=== PATIENT | male | born 1980 | race American Indian/Alaskan Native ===

== ENCOUNTER 2016-07-03 10:42 | Emergency (ER) | payer SELFPAY ==
[2016-07-03 11:14] VITALS: BP 149/96
--- NOTE | 2016-07-03 13:11 | Emergency Department Report ---
HPI - General Chief Complaint: Upper Respiratory Infection Time Seen by Provider: 07/03/16 12:26 - HPI HPI: Patient here reporting that he has cold symptoms for the past week. He states that now he history cough and is feeling better. He said he took over-the- counter medication. He also said that daughter was sick and after daughter got sick he was exposed to whatever she had. He denies any fever or chills. Denies any nausea vomiting. Denies any shortness of breath or chest pain. Denies any pain. ED Past Medical Hx - Past Medical History Previous Medical History?: Yes Hx Asthma: Yes (bronchitis) - Surgical History Past Surgical History?: No - Family History Family history: no significant - Social History Smoking Status: Current Every Day Smoker Substance Use Type: Alcohol - Medications Home Medications: Home Medications Medication Instructions Recorded Confirmed Last Taken Type Albuterol Sulfate [Proair 90 mcg IH Q4H PRN #1 aer.pow.ba 01/01/16 Unknown Rx Respiclick] Azithromycin [Zithromax] 250 mg PO QDAY #6 tablet 01/01/16 Unknown Rx Montelukast [Singulair] 10 mg PO QPM #30 tablet 01/01/16 Unknown Rx Fluticasone [Flonase] 1 spray NS QDAY #1 bottle 07/03/16 Unknown Rx Loratadine [Claritin] 10 mg PO DAILY #10 tablet 07/03/16 Unknown Rx ED Review of Systems ROS: Stated complaint: COLD Other details as noted in HPI Comment: All other systems reviewed and negative Constitutional: denies: chills, malaise ENT: congestion. denies: ear pain, throat pain Respiratory: cough. denies: shortness of breath, SOB with exertion, SOB at rest , stridor, wheezing Gastrointestinal: denies: abdominal pain, nausea, vomiting, diarrhea Musculoskeletal: denies: back pain, arthralgia Skin: denies: rash Neurological: denies: headache Physical Exam - Physical Exam Vital Signs: Vital Signs 07/03/16 11:12 Temperature 98.3 F Pulse Rate 54 L Respiratory 16 Rate Blood Pressure 149/96 O2 Sat by Pulse 100 Oximetry General: This is a 35-year-old male well-nourished well-developed in no acute distress. Physical Exam: Head: Normocephalic atraumatic Mouth: Moist, no pharyngeal exudate or erythema. Uvula is midline and oral airway is patent. No gingival enlargement or dental tenderness. No facial swelling. No peritonsillar abscesses. Neck: Supple, no C-spine tenderness, no tracheal deviation. Nontender to palpate. no adenopathy Ears: Bilateral TMs congested without erythema .bilateral EAC without any redness swelling or drainage Eyes: Bilateral pupils equal and reactive to light, bilateral EOM intact. Bilateral sclera and conjunctiva without injection. Normal accommodation Nose: Mucosa moist, positive congestion no erythema. Positive clear drainage. maxillary and frontal sinus non-tender to palpate. Lungs: Clear to auscultate bilaterally no rhonchi wheezes or rales. Normal work of breathing extremity; No CCE. +2 pulses. No neurovascular compromise Cardiovascular: S1-S2, regular rate rhythm. No murmurs. Skin: clean Dry and intact no rash no lesions Psych: Normal mood and behavior ED Course Vital Signs 07/03/16 11:12 Temperature 98.3 F Pulse Rate 54 L Respiratory 16 Rate Blood Pressure 149/96 O2 Sat by Pulse 100 Oximetry - Reevaluation(s) Reevaluation #1: 07/03/16 13:09 Patient stable throughout ED stay. ED Medical Decision Making - Medical Decision Making ED course: I discussed with patient that he has upper respiratory tract infection which is getting better. I discussed with him diagnosis and treatment plan and he is in agreement. Discharged home with prescription for Flonase and Claritin. Critical care attestation.: If time is entered above; I have spent that time in minutes in the direct care of this critically ill patient, excluding procedure time. ED Disposition Clinical Impression: Upper respiratory tract infection Qualifiers: URI type: unspecified URI Qualified Code(s): J06.9 - Acute upper respiratory infection, unspecified Disposition: DISCHARGED TO HOME OR SELFCARE Is pt being admited?: No Does the pt Need Aspirin: No Condition: Stable Instructions: Upper Respiratory Infection (ED) Additional Instructions: Increase fluid intake Vitamin C to boost her immune system Prescriptions: Fluticasone [Flonase] 1 spray NS QDAY #1 bottle Loratadine [Claritin] 10 mg PO DAILY #10 tablet Referrals: PRIMARY CARE, [Primary Care Provider] - 3-5 Days [facility] [Outside] - 3-5 Days Forms: Work/School Release Form(ED)
== END 2016-07-03 13:16 | disposition home or self-care (01) ==
LOC: ED 10:42
DX: J06.9 Acute upper respiratory infection, unspecified (principal); J45.909 Unspecified asthma, uncomplicated; F17.200 Nicotine dependence, unspecified, uncomplicated
CPT/HCPCS: 99281

== ENCOUNTER 2016-10-03 12:13 | Emergency (ER) | payer SELFPAY ==
[2016-10-03 12:37] VITALS: BP 135/100
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
[2016-10-03] MEDS ORDERED: NACL 0.9% 1000 ML 1,000 ML IV ONE (15:08)
[2016-10-03] MEDS ORDERED: LEVSIN SL SL ONE (15:08)
[2016-10-03] MEDS ORDERED: ZOFRAN IV ONE (15:08)
[2016-10-03 15:45] LABS: Hematocrit 43.3 % (35.5-45.6); Hemoglobin 14.4 gm/dl (11.8-15.2); Mean Corpuscular HGB Conc 33 % (32-34); Mean Corpuscular Hemoglobin 29 pg (28-32); Mean Corpuscular Volume 87 fl (84-94); Platelet Count 194 K/mm3 (140-440); Red Blood Count 5.01 M/mm3 (3.65-5.03); White Blood Count 4.5 K/mm3 (4.5-11.0)
[2016-10-03 16:19] LABS: Blastocytes % (Manual) 0 %
[2016-10-03 16:21] LABS: Diff Status Complete; Platelet Estimate Consistent w Auto; RBC Morphology Normal
[2016-10-03 16:30] LABS: Alanine Aminotransferase 23 units/L (7-56); Albumin 4.1 g/dL (3.9-5); Albumin/Globulin Ratio 1.2 %; Alkaline Phosphatase 68 units/L (35-129); Anion Gap 14 mmol/L; Blood Urea Nitrogen 14 mg/dL (9-20); Carbon Dioxide 29 mmol/L (22-30); Chloride 101.7 mmol/L (98-107); Glucose 103 mg/dL (75-100); Lipase 25 units/L (13-60); Sodium 141 mmol/L (137-145); Total Protein 7.4 g/dL (6.3-8.2)
--- NOTE | 2016-10-03 17:15 | Emergency Department Report ---
ED N/V/D HPI - General Chief complaint: Nausea/Vomiting/Diarrhea Stated complaint: VOMITTING/DIARRHEA/FEVER/HIP PAIN Time Seen by Provider: 10/03/16 15:07 Source: patient Mode of arrival: Ambulatory Limitations: No Limitations - History of Present Illness Initial comments: 36-year-old male presents to the ED complaining about nausea, vomiting, diarrhea , left-sided abdominal cramping. Patient states he was exposed to cryptosporidium by family member in which other family members were also having similar symptoms. Patient states that he has been having the symptoms for last 10 days off and on. Denies fever, bloody vomiting, bloody stool. - Related Data Previous Rx's Medication Instructions Recorded Last Taken Type Albuterol Sulfate [Proair 90 mcg IH Q4H PRN #1 aer.pow.ba 01/01/16 Unknown Rx Respiclick] Azithromycin [Zithromax] 250 mg PO QDAY #6 tablet 01/01/16 Unknown Rx Montelukast [Singulair] 10 mg PO QPM #30 tablet 01/01/16 Unknown Rx Fluticasone [Flonase] 1 spray NS QDAY #1 bottle 07/03/16 Unknown Rx Loratadine [Claritin] 10 mg PO DAILY #10 tablet 07/03/16 Unknown Rx Hyoscyamine Subl [Levsin Sl 0.125 0.125 mg SL Q4HR PRN #14 tablet 10/03/16 Unknown Rx TAB] Ondansetron [Zofran Odt] 4 mg PO Q6H #14 tab.rapdis 10/03/16 Unknown Rx Allergies Allergy/AdvReac Type Severity Reaction Status Date / Time No Known Allergies Allergy Verified 01/01/16 11:43 ED Review of Systems ROS: Stated complaint: VOMITTING/DIARRHEA/FEVER/HIP PAIN Other details as noted in HPI Constitutional: denies: chills, fever Eyes: denies: eye pain, eye discharge, vision change ENT: denies: ear pain, throat pain Respiratory: denies: cough, shortness of breath, wheezing Cardiovascular: denies: chest pain, palpitations Endocrine: no symptoms reported Gastrointestinal: abdominal pain, nausea, vomiting, diarrhea Genitourinary: denies: urgency, dysuria Musculoskeletal: denies: back pain, joint swelling, arthralgia Skin: denies: rash, lesions Neurological: denies: headache, weakness, paresthesias Psychiatric: denies: anxiety, depression Hematological/Lymphatic: denies: easy bleeding, easy bruising ED Past Medical Hx - Past Medical History Previous Medical History?: Yes Hx Asthma: Yes (bronchitis) - Surgical History Past Surgical History?: No - Social History Smoking Status: Current Every Day Smoker Substance Use Type: Alcohol - Medications Home Medications: Home Medications Medication Instructions Recorded Confirmed Last Taken Type Albuterol Sulfate [Proair 90 mcg IH Q4H PRN #1 aer.pow.ba 01/01/16 Unknown Rx Respiclick] Azithromycin [Zithromax] 250 mg PO QDAY #6 tablet 01/01/16 Unknown Rx Montelukast [Singulair] 10 mg PO QPM #30 tablet 01/01/16 Unknown Rx Fluticasone [Flonase] 1 spray NS QDAY #1 bottle 07/03/16 Unknown Rx Loratadine [Claritin] 10 mg PO DAILY #10 tablet 07/03/16 Unknown Rx Hyoscyamine Subl [Levsin Sl 0.125 0.125 mg SL Q4HR PRN #14 tablet 10/03/16 Unknown Rx TAB] Ondansetron [Zofran Odt] 4 mg PO Q6H #14 tab.rapdis 10/03/16 Unknown Rx ED Physical Exam - General Limitations: No Limitations General appearance: alert, in no apparent distress - Head Head exam: Present: atraumatic, normocephalic - Eye Eye exam: Present: normal appearance - ENT ENT exam: Present: mucous membranes moist - Neck Neck exam: Present: normal inspection - Respiratory Respiratory exam: Present: normal lung sounds bilaterally. Absent: respiratory distress - Cardiovascular Cardiovascular Exam: Present: regular rate, normal rhythm. Absent: systolic murmur, diastolic murmur, rubs, gallop - GI/Abdominal GI/Abdominal exam: Present: soft, tenderness (left lower quadrant), normal bowel sounds. Absent: distended, guarding, rebound, rigid - Rectal Rectal exam: Present: deferred - Extremities Exam Extremities exam: Present: normal inspection - Back Exam Back exam: Present: normal inspection - Neurological Exam Neurological exam: Present: alert, oriented X3 - Psychiatric Psychiatric exam: Present: normal affect, normal mood - Skin Skin exam: Present: warm, dry, intact, normal color. Absent: rash ED Course Vital Signs 10/03/16 12:33 Temperature 98.6 F Pulse Rate 47 L Respiratory 18 Rate Blood Pressure 135/100 O2 Sat by Pulse 100 Oximetry ED Medical Decision Making - Lab Data Result diagrams: 10/03/16 15:36 10/03/16 15:36 Vital Signs 10/03/16 12:33 Temperature 98.6 F Pulse Rate 47 L Respiratory 18 Rate Blood Pressure 135/100 O2 Sat by Pulse 100 Oximetry Laboratory Results - last 24 hr 10/03/16 10/03/16 15:36 15:36 WBC 4.5 RBC 5.01 Hgb 14.4 Hct 43.3 MCV 87 MCH 29 MCHC 33 RDW 13.0 L Plt Count 194 [place] % (Auto) Rf Technician Add Manual Diff Complete Total Counted 100 Seg Neuts % (Manual) 40.0 Band Neutrophils % 2.0 Lymphocytes % (Manual) 36.0 H Reactive Lymphs % (Man) 0 Monocytes % (Manual) 20.0 H Eosinophils % (Manual) 1.0 Basophils % (Manual) 1.0 Metamyelocytes % 0 Myelocytes % 0 Promyelocytes % 0 Blast Cells % 0 Nucleated RBC % Not Reportable Seg Neutrophils # Man 1.8 Band Neutrophils # 0.1 Lymphocytes # (Manual) 1.6 Abs React Lymphs (Man) 0.0 Monocytes # (Manual) 0.9 H Eosinophils # (Manual) 0.0 Basophils # (Manual) 0.0 Metamyelocytes # 0.0 Myelocytes # 0.0 Promyelocytes # 0.0 Blast Cells # 0.0 WBC Morphology Not Reportable Hypersegmented Neuts Not Reportable Hyposegmented Neuts Not Reportable Hypogranular Neuts Not Reportable Smudge Cells Not Reportable Toxic Granulation Not Reportable Toxic Vacuolation Not Reportable Dohle Bodies Not Reportable Pelger-Huet Anomaly Not Reportable Roz Rods Not Reportable Platelet Estimate Consistent w auto Clumped Platelets Not Reportable Plt Clumps, EDTA Not Reportable Large Platelets Not Reportable Giant Platelets Not Reportable Platelet Satelliting Not Reportable Plt Morphology Comment Not Reportable RBC Morphology Normal Dimorphic RBCs Not Reportable Polychromasia Not Reportable Hypochromasia Not Reportable Poikilocytosis Not Reportable Anisocytosis Not Reportable Microcytosis Not Reportable Macrocytosis Not Reportable Spherocytes Not Reportable Pappenheimer Bodies Not Reportable Sickle Cells Not Reportable Target Cells Not Reportable Tear Drop Cells Not Reportable Ovalocytes Not Reportable Helmet Cells Not Reportable Segura-Wilkinson Bodies Not Reportable Dawson Rings Not Reportable [place]ell Cells Not Reportable Bite Cells Not Reportable Crenated Cell Not Reportable Elliptocytes Not Reportable Acanthocytes (Spur) Not Reportable Rouleaux Not Reportable Hemoglobin C Crystals Not Reportable Schistocytes Not Reportable Malaria parasites Not Reportable James Bodies Not Reportable Hem Pathologist Commnt No Sodium 141 Potassium 4.0 Chloride 101.7 Carbon Dioxide 29 Anion Gap 14 BUN 14 Creatinine 0.8 Estimated GFR > 60 BUN/Creatinine Ratio 17.50 Glucose 103 H Calcium 9.0 Total Bilirubin 0.50 AST 20 ALT 23 Alkaline Phosphatase 68 Total Protein 7.4 Albumin 4.1 Albumin/Globulin Ratio 1.2 Lipase 25 - Medical Decision Making Patient lab work is all within normal limits and vital signs are stable. Patient is no longer having tenderness to palpation on re-abdominal examination. Patient is smiling, resting comfortably, ready for discharge. Will follow-up with GI also stool cultures pending. Critical care attestation.: If time is entered above; I have spent that time in minutes in the direct care of this critically ill patient, excluding procedure time. ED Disposition Clinical Impression: Acute gastroenteritis Disposition: DISCHARGED TO HOME OR SELFCARE Is pt being admited?: No Does the pt Need Aspirin: No Condition: Good Instructions: Gastroenteritis (ED) Additional Instructions: Take medication as prescribed. Follow-up with GI in the next few days while stool culture is pending. Return to the ED if symptoms worsen or fever or bloody stool develops. Prescriptions: Hyoscyamine Subl [Levsin Sl 0.125 TAB] 0.125 mg SL Q4HR PRN #14 tablet PRN Reason: Spasms Ondansetron [Zofran Odt] 4 mg PO Q6H #14 tab.rapdis Referrals: PRIMARY CARE, [Primary Care Provider] - 3-5 Days Forms: Work/School Release Form(ED) Time of Disposition: 17:15
== END 2016-10-03 17:40 | disposition home or self-care (01) ==
LOC: ED 12:13
DX: K52.9 Noninfective gastroenteritis and colitis, unspecified (principal); J45.909 Unspecified asthma, uncomplicated; F17.200 Nicotine dependence, unspecified, uncomplicated
CPT/HCPCS: 36415; 80053; 83690; 85007; 85025; 87045; 96374; 99283; J2405; J7030

== ENCOUNTER 2017-02-07 16:15 | Emergency (ER) | payer SELFPAY ==
[2017-02-07 17:03] LABS: Basophils % (Auto) 0.4 % (0.0-1.8); Eosinophils % (Auto) 0.4 % (0.0-4.3); Hematocrit 44.3 % (35.5-45.6); Hemoglobin 14.8 gm/dl (11.8-15.2); Mean Corpuscular HGB Conc 33 % (32-34); Mean Corpuscular Hemoglobin 29 pg (28-32); Mean Corpuscular Volume 88 fl (84-94); Platelet Count 189 K/mm3 (140-440); Red Blood Count 5.06 M/mm3 (3.65-5.03); Red Cell Distribution Width 13.3 % (13.2-15.2); White Blood Count 4.1 K/mm3 (4.5-11.0)
[2017-02-07 17:19] LABS: Anion Gap 18 mmol/L; BUN/Creatinine Ratio 11.25; Blood Urea Nitrogen 9 mg/dL (9-20); Calcium 9.4 mg/dL (8.4-10.2); Carbon Dioxide 26 mmol/L (22-30); Chloride 103.1 mmol/L (98-107); Glucose 88 mg/dL (75-100); Potassium 4.6 mmol/L (3.6-5.0); Sodium 142 mmol/L (137-145)
--- NOTE | 2017-02-07 17:19 | Emergency Department Report ---
Chief Complaint: Chest Pain Stated Complaint: CP Time Seen by Provider: 02/07/17 17:19 - HPI History of Present Illness: Patient here report chest pain to right chest that is 8 out of 10 and it's worse when he breathes and it feels squeezed the knees had similar pain when he was younger and he had pericarditis. Patient has a history of asthma he denies any wheezing. Denies any known fever. Patient heart rate is 44 and EKG and manual pulse is at 55. Patient said that he's been told that he has a runner's heart and his heart rate is always low. He said he has cough and congestion to his chest and cough is hacking in for 3 days now. No [id number] medication use. It was noted in triage noted patient was anxious patient denies being anxious. It was also reported the patient was having difficulty walking but he said because he felt sick and he was coughing so much but he is able to walk. Denies any history of cardiac disease. Medical history of bronchitis, pericarditis and asthma. - ROS Review of Systems: All systems are negative unless stated in HPI above - Exam Vital Signs: Vital Signs 02/07/17 02/07/17 16:26 16:33 Temperature 97.9 F Pulse Rate 53 L 44 L Respiratory 16 Rate Blood Pressure 151/99 O2 Sat by Pulse 100 Oximetry Vital Signs 02/07/17 02/07/17 02/07/17 16:26 16:33 18:21 Temperature 97.9 F Pulse Rate 53 L 44 L 55 L Respiratory 16 Rate Blood Pressure 151/99 O2 Sat by Pulse 100 Oximetry Physical Exam: Gen.: This is a 36-year-old male well-nourished well-developed in no acute distress. Cardiovascular: S1, S2. Patient with bradycardia . EKG shows sinus bradycardia at 44 bpm. Manual apical pulse is a 55 bpm Lungs: Dry cough noted, normal work of breathing. No use of accessory muscles. Lungs sounds clear throughout. MSE screening note: Focused history and physical exam performed. Due to findings the following was ordered:see [facility] ED Medical Decision Making - Lab Data Result diagrams: 02/07/17 16:40 02/07/17 16:40 - Medical Decision Making MDM: Patient screened by provider in triage area. Appropriate protocol initiated and patient to be seen in main ED by Provider ED Disposition for MSE Condition: Stable
--- NOTE | 2017-02-08 02:34 | Emergency Department Report ---
ED General Adult HPI - General Chief complaint: Chest Pain Stated complaint: CP Time Seen by Provider: 02/07/17 17:19 Source: patient, RN notes reviewed Mode of arrival: Ambulatory Limitations: No Limitations - History of Present Illness Initial comments: This is a 36-year-old male, the patient is previously unknown to me. The patient reports a history of cannabis consumption, asthmatic bronchitis, pericarditis in the distant past. Patient presents to the ER complaining of right-sided chest wall discomfort with coughing. There is no vomiting or diaphoresis. There is no leg pain or leg swelling. No recent trips greater than 4 hours. No recent hospital admissions. Patient denies cocaine use and aspirin use. His symptoms do not radiate anywhere, and they have no exacerbating or relieving factors. -: Gradual Location: chest Radiation: non-radiation Severity scale (0 -10): 6 Quality: aching Consistency: intermittent Improves with: none Worsens with: none Associated Symptoms: chest pain, cough - Related Data Previous Rx's Medication Instructions Recorded Last Taken Type Albuterol Sulfate [Proair 90 mcg IH Q4HR PRN #2 aer.[email or web address] 02/08/17 Unknown Rx Respiclick] Benzonatate [Tessalon Perles] 100 mg PO Q8HR PRN #30 capsule 02/08/17 Unknown Rx Fluticasone [Flonase] 1 spray NS QDAY #1 bottle 02/08/17 Unknown Rx Ibuprofen [Motrin] 600 mg PO Q8H PRN #30 tablet 02/08/17 Unknown Rx Allergies Allergy/AdvReac Type Severity Reaction Status Date / Time No Known Allergies Allergy Verified 01/01/16 11:43 ED Review of Systems ROS: Stated complaint: CP Other details as noted in HPI Constitutional: denies: diaphoresis, fever, malaise Eyes: denies: vision change ENT: congestion Respiratory: cough Cardiovascular: chest pain Gastrointestinal: denies: abdominal pain Genitourinary: denies: dysuria Musculoskeletal: denies: back pain Skin: denies: lesions Neurological: denies: weakness Psychiatric: denies: anxiety ED Past Medical Hx - Past Medical History Previous Medical History?: Yes Hx Asthma: Yes (bronchitis) Additional medical history: Pericarditis - Surgical History Past Surgical History?: No - Social History Smoking Status: Current Every Day Smoker Substance Use Type: Alcohol, Marijuana - Medications Home Medications: Home Medications Medication Instructions Recorded Confirmed Last Taken Type Albuterol Sulfate [Proair 90 mcg IH Q4HR PRN #2 aer.[email or web address] 02/08/17 Unknown Rx Respiclick] Benzonatate [Tessalon Perles] 100 mg PO Q8HR PRN #30 capsule 02/08/17 Unknown Rx Fluticasone [Flonase] 1 spray NS QDAY #1 bottle 02/08/17 Unknown Rx Ibuprofen [Motrin] 600 mg PO Q8H PRN #30 tablet 02/08/17 Unknown Rx ED Physical Exam - General Limitations: No Limitations General appearance: alert, in no apparent distress - Head Head exam: Present: atraumatic, normocephalic - Eye Eye exam: Present: normal appearance, EOMI. Absent: nystagmus - ENT ENT exam: Present: normal exam, normal orophraynx, mucous membranes moist, normal external ear exam - Neck Neck exam: Present: normal inspection, full ROM. Absent: tenderness, meningismus - Respiratory Respiratory exam: Present: normal lung sounds bilaterally. Absent: respiratory distress, wheezes, rales, rhonchi, stridor - Cardiovascular Cardiovascular Exam: Present: normal rhythm, bradycardia, normal heart sounds. Absent: systolic murmur, diastolic murmur, rubs, gallop - GI/Abdominal GI/Abdominal exam: Present: soft, normal bowel sounds. Absent: distended, tenderness, guarding, rebound, rigid, pulsatile mass - Rectal Rectal exam: Present: deferred - Extremities Exam Extremities exam: Present: normal inspection, full ROM, normal capillary refill. Absent: tenderness, pedal edema, joint swelling, calf tenderness - Back Exam Back exam: Present: normal inspection, full ROM. Absent: tenderness, CVA tenderness (R), CVA tenderness (L), muscle spasm, paraspinal tenderness, vertebral tenderness - Neurological Exam Neurological exam: Present: alert, oriented X3, normal gait, other (Extraocular movements intact. Tongue midline. No facial droop. Facial sensation intact to light touch in the V1, V2, V3 distribution bilaterally. 5 and 5 strength in 4 extremities.. Sensation is intact to light touch in 4 extremities.). Absent : motor sensory deficit - Psychiatric Psychiatric exam: Present: normal affect, normal mood - Skin Skin exam: Present: warm, dry, intact, normal color. Absent: rash ED Course Vital Signs 02/07/17 02/07/17 02/07/17 16:26 16:33 18:21 Temperature 97.9 F Pulse Rate 53 L 44 L 55 L Respiratory 16 Rate Blood Pressure 151/99 Blood Pressure [Left] O2 Sat by Pulse 100 Oximetry 02/07/17 02/08/17 02/08/17 21:28 00:16 01:05 Temperature 97.9 F Pulse Rate 52 L 52 L Respiratory 18 17 Rate Blood Pressure 144/98 Blood Pressure 174/103 150/100 [Left] O2 Sat by Pulse 99 100 Oximetry 02/08/17 02:41 Temperature Pulse Rate 52 L Respiratory Rate Blood Pressure Blood Pressure 151/102 [Left] O2 Sat by Pulse Oximetry ED Medical Decision Making - Lab Data Result diagrams: 02/07/17 16:40 02/07/17 16:40 Vital Signs 02/07/17 02/07/17 02/07/17 16:26 16:33 18:21 Temperature 97.9 F Pulse Rate 53 L 44 L 55 L Respiratory 16 Rate Blood Pressure 151/99 Blood Pressure [Left] O2 Sat by Pulse 100 Oximetry 02/07/17 02/08/17 02/08/17 21:28 00:16 01:05 Temperature 97.9 F Pulse Rate 52 L 52 L Respiratory 18 17 Rate Blood Pressure 144/98 Blood Pressure 174/103 150/100 [Left] O2 Sat by Pulse 99 100 Oximetry 02/08/17 02:41 Temperature Pulse Rate 52 L Respiratory Rate Blood Pressure Blood Pressure 151/102 [Left] O2 Sat by Pulse Oximetry Lab Results 02/07/17 02/07/17 02/07/17 Range/Units 16:40 16:40 19:31 WBC 4.1 L (4.5-11.0) K/mm3 RBC 5.06 H (3.65-5.03) M/mm3 Hgb 14.8 (11.8-15.2) gm/dl Hct 44.3 (35.5-45.6) % MCV 88 (84-94) fl MCH 29 (28-32) pg MCHC 33 (32-34) % RDW 13.3 (13.2-15.2) % Plt Count 189 (140-440) K/mm3 Lymph % (Auto) 38.2 H (13.4-35.0) % Maverick % (Auto) 12.9 H (0.0-7.3) % Eos % (Auto) 0.4 (0.0-4.3) % Baso % (Auto) 0.4 (0.0-1.8) % Lymph # 1.6 (1.2-5.4) K/mm3 Maverick # 0.5 (0.0-0.8) K/mm3 Eos # 0.0 (0.0-0.4) K/mm3 Baso # 0.0 (0.0-0.1) K/mm3 Seg Neutrophils % 48.1 (40.0-70.0) % Seg Neutrophils # 2.0 (1.8-7.7) K/mm3 Sodium 142 (137-145) mmol/L Potassium 4.6 (3.6-5.0) mmol/L Chloride 103.1 (98-107) mmol/L Carbon Dioxide 26 (22-30) mmol/L Anion Gap 18 mmol/L BUN 9 (9-20) mg/dL Creatinine 0.8 (0.8-1.5) mg/dL Estimated GFR > 60 ml/min BUN/Creatinine Ratio 11.25 % Glucose 88 (75-100) mg/dL Calcium 9.4 (8.4-10.2) mg/dL Troponin T < 0.010 < 0.010 (0.00-0.029) ng/mL 02/07/17 Range/Units 22:42 WBC (4.5-11.0) K/mm3 RBC (3.65-5.03) M/mm3 Hgb (11.8-15.2) gm/dl Hct (35.5-45.6) % MCV (84-94) fl MCH (28-32) pg MCHC (32-34) % RDW (13.2-15.2) % Plt Count (140-440) K/mm3 Lymph % (Auto) (13.4-35.0) % Maverick % (Auto) (0.0-7.3) % Eos % (Auto) (0.0-4.3) % Baso % (Auto) (0.0-1.8) % Lymph # (1.2-5.4) K/mm3 Maverick # (0.0-0.8) K/mm3 Eos # (0.0-0.4) K/mm3 Baso # (0.0-0.1) K/mm3 Seg Neutrophils % (40.0-70.0) % Seg Neutrophils # (1.8-7.7) K/mm3 Sodium (137-145) mmol/L Potassium (3.6-5.0) mmol/L Chloride (98-107) mmol/L Carbon Dioxide (22-30) mmol/L Anion Gap mmol/L BUN (9-20) mg/dL Creatinine (0.8-1.5) mg/dL Estimated GFR ml/min BUN/Creatinine Ratio % Glucose (75-100) mg/dL Calcium (8.4-10.2) mg/dL Troponin T < 0.010 (0.00-0.029) ng/mL - EKG Data -: EKG Interpreted by Me - EKG Data 02/08/17 04:14 EKG #1 demonstrated sinus bradycardia, 44 bpm, normal axis, normal intervals, not morphologically consistent with STEMI. EKG #2 demonstrates sinus bradycardia, 46 bpm, normal axis, normal intervals, not morphologically consistent with STEMI. - Radiology Data Radiology results: image reviewed interpreted by me: X-ray the chest is negative - Medical Decision Making Differential diagnosis: Pleuritis, pericarditis, pneumonia, acute coronary syndrome, costochondritis Assessment and plan: 36-year-old male with atypical chest pain. No pulmonary embolus or DVT risk factors, low risk by well's criteria, low risk by GOPI score , low risk by heart score, perc negative, troponin negative 3, EKG unremarkable 2, with a negative chest x-ray. Bedside ultrasound demonstrates no large effusion, and symmetrically coordinated biventricular activity, with no obvious wall motion defects. 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 Critical care attestation.: If time is entered above; I have spent that time in minutes in the direct care of this critically ill patient, excluding procedure time. ED Disposition Clinical Impression: Chest discomfort Disposition: DC-01 TO HOME OR SELFCARE Is pt being admited?: No Does the pt Need Aspirin: No Condition: Stable Instructions: Chest Pain (ED), Costochondritis (ED) Additional Instructions: Take medications as directed. Discontinue consumption of tobacco and marijuana. Follow up with any of the listed cardiology specialists within the next 3-5 days. Return to the ER right away with new pain, worsened pain, migration of pain, fevers, chills, lethargy, irritability, projectile vomiting, change in mental status. Prescriptions: Albuterol Sulfate [Proair Respiclick] 90 mcg IH Q4HR PRN #2 aer.pow.ba PRN Reason: Wheezing Benzonatate [Tessalon Perles] 100 mg PO Q8HR PRN #30 capsule PRN Reason: Cough Fluticasone [Flonase] 1 spray NS QDAY #1 bottle Ibuprofen [Motrin] 600 mg PO Q8H PRN #30 tablet PRN Reason: Pain Referrals: PRIMARY CARE, [Primary Care Provider] - 3-5 Days [facility] [Provider Group] - 3-5 Days [facility] [Provider Group] - 3-5 Days
[2017-02-08 02:42] VITALS: BP 151/102
--- NOTE | 2017-02-08 08:11 | XRay Report ---
XRAY CHEST TWO VIEWS: 02/07/17 16:15:00 CLINICAL: Cough and chills. COMPARISON: 01/01/16 FINDINGS: Normal heart and pulmonary vasculature. The lungs are normally expanded and clear.The bones and soft tissues are unremarkable. IMPRESSION: Normal chest.
== END 2017-02-08 02:43 | disposition home or self-care (01) ==
LOC: ED 16:15
DX: R07.89 Other chest pain (principal); R05 Cough; F17.210 Nicotine dependence, cigarettes, uncomplicated; F12.10 Cannabis abuse, uncomplicated
CPT/HCPCS: 36415; 71020; 80048; 84484; 85025; 93005; 93010; 99284